=== PATIENT | male | born 1965 | race Caucasian/White ===

== ENCOUNTER 2017-11-23 20:19 | Emergency (ER) | payer OTHER, BC ==
[~2017-11-23] VITALS: Ht 172.7 cm; Wt 97.5 kg
[2017-11-24 01:16] LABS: HEMATOCRIT 47.2 % (38.0-50.0); HEMOGLOBIN 16.4 G/DL (12.5-16.6); MCH 30.4 PG (29.0-34.0); MCHC 34.7 G/DL (30.0-36.0); MCV 87.6 FL (86-99); PLATELET COUNT 165 K/uL (156-360); RBC DIS.WIDTH-CV 12.7 % (11.8-14.6); RBC DIS.WIDTH-SD 40.5 % (39-53); RED BLOOD COUNT 5.39 M/uL (4.00-5.50); WHITE BLOOD COUNT 9.2 K/uL (4.1-10.2)
[2017-11-24 01:23] LABS: ALBUMIN 4.2 g/dL (3.2-4.8)
[2017-11-24 01:24] LABS: CHLORIDE 101 mEq/L (99-109); POTASSIUM 3.8 mEq/L (3.7-5.4); SODIUM 138 mEq/L (136-147)
[2017-11-24 01:26] LABS: GLUCOSE 129 mg/dL (70-99); TOTAL PROTEIN 7.2 g/dL (6.4-8.3)
[2017-11-24 01:28] LABS: TOTAL BILIRUBIN 1.5 mg/dL (0.0-1.0)
[2017-11-24 01:29] LABS: ALKALINE PHOSPHATASE 62 IU/L (3-129)
[2017-11-24 01:30] LABS: CREATININE 0.9 mg/dL (0.6-1.3); GFR ESTIMATE (CALCULATED) > 59 mL/min/ (58.99-99999)
[2017-11-24 01:31] LABS: AST (GOT) 25 IU/L (2-34); UREA NITROGEN (BUN) 18 mg/dL (9-23)
[2017-11-24 01:32] LABS: ALT (GPT) 53 IU/L (3-49)
[2017-11-24 04:25] LABS: SYNOVIAL FLUID GLUCOSE < 10 MG/DL
[2017-11-24 05:10] LABS: APPEARANCE CLOUDY-BLOODY; MONONUCLEAR WBC'S 24 %; POLYNUCLEAR WBC'S 74 % (0-25); RED CELL COUNT 82000 /MM^3 (0-1); SYNOVIAL FLUID EOSINOPHILS 2 % (0-25); WHITE CELL COUNT 650 /MM^3 (0-200.0)
[2017-11-24 05:47] LABS: CREATINE KINASE 170 IU/L (1-294)
[2017-11-24] MEDS ORDERED: LATANOPROST2.5 ML BOTH EYES (06:15)
[2017-11-24] MEDS ORDERED: KEFLEX500 MG PO (06:52)
[2017-11-24] MEDS ORDERED: DOXYCYCLINE HY100 MG PO (06:52)
[2017-11-24] MEDS ORDERED: PERCOCET 5/31 TABLET PO (06:53)
[2017-11-24] MEDS ORDERED: MOTRIN600 MG PO (06:53)
[2017-11-24 07:03] LABS: CRYSTALS NO CRYSTALS SEEN
[2017-11-24 07:27] VITALS: BP 171/93
[2017-11-24 07:28] LABS: ERTH.SED.RATE 2 MM/HR (0-20)
== END 2017-11-24 07:28 | disposition home or self-care (01) ==
LOC: EME 20:19 → RME 20:19
PROVIDERS: Emergency Medicine; Nurse Practitioner Family
PROC: 0S9C3ZZ Drainage of Right Knee Joint, Percutaneous Approach (ICD-10-PCS; principal; 2017-11-24)
DX: L03.115 Cellulitis of right lower limb (principal); W23.1XXA Caught, crushed, jammed, or pinched between stationary objects, initial encounter; Y99.0 Civilian activity done for income or pay; Z88.2 Allergy status to sulfonamides; Z88.1 Allergy status to other antibiotic agents
CPT/HCPCS: 73564; 80053; 82550; 82945 91; 83605; 85027; 85651; 87205; 89051; 89060; 93971; 99281; 99285; J0690; J1885; J3010; J7030